=== PATIENT | female | born 1950 | race Caucasian/White ===

== ENCOUNTER → 2016-10-08 | Outpatient (CLI) | payer BC ==
[~2016-10-08] VITALS: Ht 160 cm; Wt 71.7 kg
[~2016-10-08] MED LIST: AMARYL2 MG PO; BYSTOLIC20 MG PO; Bystolic PO; DIOVAN HCT 11 TABLET PO; Diovan HCT 160/12.5 PO; GLUCOPHAGE500 MG PO; NORVASC5 MG PO; PROTONIX40 MG PO; Percocet 5/325,Endoc PO; Protonix PO; TRICOR145 MG PO
[2016-10-08 10:30] LABS: HEMATOCRIT 37.7 % (36.0-46.0); MCH 29.2 PG (29.0-34.0); MCHC 33.4 G/DL (30.0-36.0); MCV 87.3 FL (83-99); PLATELET COUNT 280 K/uL (156-360); RBC DIS.WIDTH-CV 13.8 % (11.8-14.6); RBC DIS.WIDTH-SD 43.9 % (39-53); RED BLOOD COUNT 4.32 M/uL (3.80-5.20); WHITE BLOOD COUNT 5.2 K/uL (4.1-10.2)
[2016-10-08 10:31] LABS: POINT-OF-CARE METER ID UU13113694
[2016-10-08 10:39] LABS: PROTHROMBIN TIME 11.5 SEC (10.2-12.9)
[2016-10-08 10:42] LABS: PTT 28.5 SEC (25-37)
== END | disposition home or self-care (01) ==
LOC: OPR 10-03 09:00 → EDSTATUS 09:00 → OPR 09:00
PROVIDERS: Internal Medicine
DX: R59.0 Localized enlarged lymph nodes (principal); Z85.528 Personal history of other malignant neoplasm of kidney; E11.9 Type 2 diabetes mellitus without complications; I10 Essential (primary) hypertension; F41.9 Anxiety disorder, unspecified; K21.9 Gastro-esophageal reflux disease without esophagitis; E78.1 Pure hyperglyceridemia; Z82.49 Family history of ischemic heart disease and other diseases of the circulatory system; Z80.3 Family history of malignant neoplasm of breast; Z83.3 Family history of diabetes mellitus; Z80.1 Family history of malignant neoplasm of trachea, bronchus and lung; Z79.84 Long term (current) use of oral hypoglycemic drugs
CPT/HCPCS: 77012; 82948; 85027; 85610; 85730; 88305; 88341 TC; 88342 TC; J3010

== ENCOUNTER → 2016-10-29 | Outpatient (CLI) | payer BC | END | disposition home or self-care (01) | LOC: CDC 14:18 | DX: R94.31 Abnormal electrocardiogram [ECG] [EKG] (principal) | CPT/HCPCS: 93000 ==

== ENCOUNTER 2017-03-17 08:31 | Day surgery (SDC) | payer BC ==
[~2017-03-17] VITALS: Ht 160 cm; Wt 66.7 kg
[2017-03-17 09:00] VITALS: BP 111/66
[2017-03-17 12:16] VITALS: BP 113/62
[2017-03-17 12:54] VITALS: BP 132/67
[2017-03-17 13:10] VITALS: BP 122/61
== END 2017-03-17 13:40 | disposition home or self-care (01) ==
LOC: SDC 08:31
PROVIDERS: Urology
DX: N13.5 Crossing vessel and stricture of ureter without hydronephrosis (principal); I10 Essential (primary) hypertension; E11.9 Type 2 diabetes mellitus without complications; E78.00 Pure hypercholesterolemia, unspecified; Z85.53 Personal history of malignant neoplasm of renal pelvis; Z92.21 Personal history of antineoplastic chemotherapy; Z85.72 Personal history of non-Hodgkin lymphomas; Z90.5 Acquired absence of kidney
CPT/HCPCS: 74420; 82948; C1758; C1769; J1100; J2405; J3010; Q0175